=== PATIENT | male | born 1960 | race African-American/Black ===

== ENCOUNTER 2016-07-17 14:58 | Emergency (ER) | payer MEDICAID ==
[~2016-07-17] VITALS: Ht 182.9 cm; Wt 79.0 kg
[~2016-07-17 14:58] MED LIST: ACET-2708
[2016-07-17] MEDS ORDERED: HYDR25TA PO (16:11)
[2016-07-17] MEDS ORDERED: AMLO10TA80 PO (16:11)
[2016-07-17] MEDS ORDERED: ATEN50TA PO (16:11)
[2016-07-17] MEDS ORDERED: BENA40TA3 PO (16:11)
[2016-07-17] MEDS ORDERED: SODIUM CHLORIDE 0.9% 1,000 ML IV ONE (20:50)
[2016-07-17] MEDS ORDERED: ONDANSETRON HCL 4MG/2ML VIAL IV STA (20:50)
[2016-07-17] MEDS ORDERED: MORPHINE SULFATE 4 MG/ML CPJ (NOT FOR IM USE) IV STA (20:50)
[2016-07-17] MEDS ORDERED: KETOROLAC 30MG/ML VIAL IV STA (20:50)
[2016-07-17 21:07] LABS: BASOPHILS % 0.8 % (0.0-2.0); EOSINOPHILS % 1.1 % (0.0-5.0); HEMOGLOBIN. 14.9 g/dL (14.0-18.0); LYMPHOCYTES % 19.8 % (20.0-50.0); MEAN CORPUSCULAR HEMOGLOBIN 28.4 pg (28.0-32.0); MEAN CORPUSCULAR HGB CONC 33.1 g/dL (31.0-37.0); MEAN CORPUSCULAR VOLUME 85.6 fL (80.0-94.0); MEAN PLATELET VOLUME 8.8 fl (7.4-10.4); MONOCYTES % 7.7 % (2.0-8.0); NEUTROPHILS % 70.6 % (40.0-76.0); PLATELET 205 x1000/uL (130-400); RED BLOOD CELL COUNT 5.25 mill/uL (4.7-6.1); RED CELL DISTRIBUTION WIDTH 14.2 % (11.6-14.6); WHITE BLOOD COUNT 10.6 x1000/uL (4.5-11.0)
[2016-07-17 21:13] LABS: CHLORIDE 103 mEq/L (98-107); INDEX HEMOLYSI 1 (1-3); INDEX ICTERIC 1 (1-4); INDEX LIPEMIC 1 (1-3)
[2016-07-17 21:16] LABS: ALBUMIN 3.8 g/dL (3.4-5.0); ANION GAP 14; CALCIUM 9.3 mg/dL (8.5-10.1); CARBON DIOXIDE 26 mEq/L (21-32); UREA NITROGEN BLOOD 30 mg/dL (7-21)
[2016-07-17 21:20] LABS: ALANINE AMINOTRANSFERASE 21 IU/L (13-61); eGFR > 60 mL/min (>60)
[2016-07-17 21:45] LABS: CLARITY URINE CLEAR (CLEAR); COLOR URINE YELLOW (YELLOW); GLUCOSE URINE NEGATIVE (NEGATIVE); KETONES URINE 2+ (NEGATIVE); LEUKOCYTE ESTERASE URINE NEGATIVE (NEGATIVE); NITRITE URINE NEGATIVE (NEGATIVE); OCCULT BLOOD URINE 1+ (NEGATIVE); PROTEIN URINE NEGATIVE (NEGATIVE)
[2016-07-17 22:15] LABS: MUCUS URINE 1+ /lpf (NONE/TRACE); SQUAMOUS EPITHELIAL CELL URINE FEW /lpf (RARE/1+); WBC URINE 0-2 /hpf (0-2)
[2016-07-17 22:17] LABS: BACTERIA URINE 1+
[2016-07-17 23:30] VITALS: BP 111/69
== END 2016-07-18 00:13 | disposition home or self-care (01) ==
LOC: ER 15:12
DX: N20.0 Calculus of kidney (principal); N39.0 Urinary tract infection, site not specified; I10 Essential (primary) hypertension; R10.9 Unspecified abdominal pain
CPT/HCPCS: 36415; 74176; 80053; 81001; 85025; 96361; 96374; 96375; 99285; J1885; J2270; J2405; J7030; Z7610

== ENCOUNTER 2016-07-25 02:14 | Emergency (ER) | payer MEDICAID ==
[~2016-07-25] VITALS: Ht 185.4 cm; Wt 79.0 kg
[~2016-07-25 02:14] MED LIST changes: +AMLO10TA80 PO; +ATEN50TA PO; +BENA40TA3 PO; +HYDR25TA PO
[2016-07-25] MEDS ORDERED: KETOROLAC 60MG/2ML VIAL IM ONE (04:00)
[2016-07-25 04:59] LABS: CLARITY URINE CLOUDY (CLEAR); COLOR URINE YELLOW (YELLOW); GLUCOSE URINE NEGATIVE (NEGATIVE); KETONES URINE NEGATIVE (NEGATIVE); LEUKOCYTE ESTERASE URINE NEGATIVE (NEGATIVE); NITRITE URINE NEGATIVE (NEGATIVE); OCCULT BLOOD URINE NEGATIVE (NEGATIVE); PROTEIN URINE NEGATIVE (NEGATIVE); SPECIFIC GRAVITY URINE 1.015 (1.005-1.030); UROBILINOGEN URINE 0.2 E.U./dL (0.2-1.0)
[2016-07-25 05:13] LABS: AMORPHOUS SEDIMENT URINE 1+ /lpf; BACTERIA URINE 1+; RBC URINE 0-2 /hpf (0-2); SQUAMOUS EPITHELIAL CELL URINE RARE /lpf (RARE/1+); WBC URINE 0-2 /hpf (0-2)
[2016-07-25 06:13] VITALS: BP 132/77
== END 2016-07-25 06:16 | disposition home or self-care (01) ==
LOC: ER 02:15
DX: N39.0 Urinary tract infection, site not specified (principal); G89.29 Other chronic pain; F17.200 Nicotine dependence, unspecified, uncomplicated
CPT/HCPCS: 81001; 96372; 99283; J1885

== ENCOUNTER 2021-05-20 21:58 | Emergency (ER) | payer MEDICAID, OTHER ==
[~2021-05-20] VITALS: Ht 182.9 cm; Wt 79.0 kg
[~2021-05-20 21:58] MED LIST changes: -AMLO10TA80 PO; +AMLO5TAB88 MT; +ASPI-1406 PO; -ATEN50TA PO; -BENA40TA3 PO; +DILT120C88 PO; +GABA-532 MT; +HYDR25TA MT; -HYDR25TA PO
[2021-05-20] MEDS ORDERED: IBUPROFEN 600MG TABLET PO STA (23:48)
[2021-05-21 00:01] VITALS: BP 128/83
[2021-05-21 00:02] LABS: BASOPHILS % 0.8 % (0.0-2.0); EOSINOPHILS % 1.5 % (0.0-5.0); HEMATOCRIT. 49.5 % (42.0-52.0); LYMPHOCYTES % 16.7 % (20.0-50.0); MEAN CORPUSCULAR HEMOGLOBIN 28.3 pg (28.0-32.0); MEAN CORPUSCULAR VOLUME 87.4 fL (80.0-94.0); MEAN PLATELET VOLUME 9.2 fl (7.4-10.4); MONOCYTES % 6.9 % (2.0-8.0); NEUTROPHILS % 74.1 % (40.0-76.0); PLATELET 183 x1000/uL (130-400); RED BLOOD CELL COUNT 5.66 mill/uL (4.7-6.1); RED CELL DISTRIBUTION WIDTH 14.3 % (11.6-14.6)
[2021-05-21 00:10] LABS: CHLORIDE 108 mEq/L (98-107)
[2021-05-21 00:34] LABS: CLARITY URINE CLEAR (CLEAR); COLOR URINE YELLOW (YELLOW); KETONES URINE TRACE (NEGATIVE); LEUKOCYTE ESTERASE URINE NEGATIVE (NEGATIVE); NITRITE URINE NEGATIVE (NEGATIVE); OCCULT BLOOD URINE NEGATIVE (NEGATIVE); PH URINE 5.5 (4.5-8.0); PROTEIN URINE NEGATIVE (NEGATIVE); SPECIFIC GRAVITY URINE 1.028 (1.005-1.030)
== END 2021-05-21 03:27 | disposition left against medical advice (07) ==
LOC: ER 21:58
DX: K59.00 Constipation, unspecified (principal); M25.561 Pain in right knee; M25.562 Pain in left knee; I10 Essential (primary) hypertension; Z79.899 Other long term (current) drug therapy; Z98.890 Other specified postprocedural states
CPT/HCPCS: 36415; 74176; 80053; 81003; 85025; 99284

== ENCOUNTER 2021-06-01 22:57 | Emergency (ER) | payer OTHER ==
[~2021-06-01] VITALS: Ht 182.9 cm; Wt 79.0 kg
[2021-06-01] MEDS ORDERED: METHOCARBAMOL 500MG TABLET PO ONE (23:45)
[2021-06-01] MEDS ORDERED: LIDOCAINE 5% PATCH TOP SCH (23:45)
[2021-06-01] MEDS ORDERED: ACETAMINOPHEN 325MG TABLET PO ONE (23:45)
[2021-06-02] MEDS ORDERED: LIDO1ADH5 TP (00:45)
[2021-06-02] MEDS ORDERED: METH-773 MT (00:45)
[2021-06-02 01:15] VITALS: BP 152/90
== END 2021-06-02 01:16 | disposition home or self-care (01) ==
LOC: ER 22:57
DX: M54.50 Low back pain, unspecified (principal); G89.29 Other chronic pain; I10 Essential (primary) hypertension; Z98.890 Other specified postprocedural states; Z79.899 Other long term (current) drug therapy
CPT/HCPCS: 99284

== ENCOUNTER 2021-06-09 00:18 | Emergency (ER) | payer OTHER ==
[~2021-06-09] VITALS: Ht 182.9 cm; Wt 75.0 kg
[~2021-06-09 00:18] MED LIST changes: +LIDO1ADH5 TP; +METH-773 MT
[2021-06-09] MEDS ORDERED: HYDROCODONE/ACETAMINOPHEN 5/325MG TABLET PO STA (01:21)
[2021-06-09] MEDS ORDERED: KETOROLAC 30MG/ML VIAL IM STA (01:21)
[2021-06-09] MEDS ORDERED: GABA-532 PO (02:48)
[2021-06-09] MEDS ORDERED: NAPR-681 PO (02:48)
[2021-06-09 03:51] VITALS: BP 145/86
== END 2021-06-09 03:53 | disposition home or self-care (01) ==
LOC: ER 00:18
DX: M54.50 Low back pain, unspecified (principal); G89.29 Other chronic pain; I10 Essential (primary) hypertension; Z98.890 Other specified postprocedural states; Z79.899 Other long term (current) drug therapy
CPT/HCPCS: 96372; 99283; J1885

== ENCOUNTER 2021-08-07 21:58 | Emergency (ER) | payer MEDICAID ==
[~2021-08-07] VITALS: Ht 182.9 cm; Wt 74.5 kg
[~2021-08-07 21:58] MED LIST changes: +GABA-532 PO; +NAPR-681 PO
[2021-08-08 03:33] LABS: CLARITY URINE TURBID (CLEAR); COLOR URINE YELLOW (YELLOW); KETONES URINE TRACE (NEGATIVE); LEUKOCYTE ESTERASE URINE 3+ (NEGATIVE); NITRITE URINE NEGATIVE (NEGATIVE); OCCULT BLOOD URINE 3+ (NEGATIVE); PH URINE 7.5 (4.5-8.0); PROTEIN URINE 1+ (NEGATIVE); SPECIFIC GRAVITY URINE 1.017 (1.005-1.030); UROBILINOGEN URINE 0.2 E.U./dL (0.2-1.0)
[2021-08-08] MEDS ORDERED: CEFP200T13 MT (04:24)
[2021-08-08 04:50] VITALS: BP 145/97
== END 2021-08-08 04:52 | disposition home or self-care (01) ==
LOC: ER 21:58
DX: Z46.6 Encounter for fitting and adjustment of urinary device (principal); R33.9 Retention of urine, unspecified; N39.0 Urinary tract infection, site not specified; I10 Essential (primary) hypertension; M54.30 Sciatica, unspecified side; Z79.82 Long term (current) use of aspirin
CPT/HCPCS: 81003; 87077; 87086; 87186; 99283; Z7610

== ENCOUNTER 2021-08-30 05:03 | Emergency (ER) | payer MEDICAID ==
[~2021-08-30] VITALS: Ht 182.9 cm; Wt 75.3 kg
[~2021-08-30 05:03] MED LIST changes: +CEFP200T13 MT; +CIPR250S3 MT
[2021-08-30 05:13] VITALS: BP 151/109
[2021-08-30 06:47] LABS: CLARITY URINE CLEAR (CLEAR); COLOR URINE YELLOW (YELLOW); KETONES URINE TRACE (NEGATIVE); LEUKOCYTE ESTERASE URINE TRACE (NEGATIVE); NITRITE URINE NEGATIVE (NEGATIVE); OCCULT BLOOD URINE 2+ (NEGATIVE); PROTEIN URINE 1+ (NEGATIVE); SPECIFIC GRAVITY URINE 1.019 (1.005-1.030)
== END 2021-08-30 07:10 | disposition home or self-care (01) ==
LOC: ER 05:03
DX: R33.9 Retention of urine, unspecified (principal); I10 Essential (primary) hypertension; Z79.899 Other long term (current) drug therapy
CPT/HCPCS: 51702; 81003; 99284; A4315

== ENCOUNTER 2021-09-08 01:24 | Emergency (ER) | payer MEDICAID ==
[~2021-09-08] VITALS: Ht 182.9 cm; Wt 80.0 kg
[2021-09-08] MEDS ORDERED: IBUPROFEN 600MG TABLET PO STA (03:57)
[2021-09-08 05:34] LABS: CLARITY URINE TURBID (CLEAR); COLOR URINE YELLOW (YELLOW); KETONES URINE NEGATIVE (NEGATIVE); LEUKOCYTE ESTERASE URINE 3+ (NEGATIVE); NITRITE URINE NEGATIVE (NEGATIVE); OCCULT BLOOD URINE 3+ (NEGATIVE); PROTEIN URINE 3+ (NEGATIVE); SPECIFIC GRAVITY URINE 1.017 (1.005-1.030)
[2021-09-08] MEDS ORDERED: LIDOCAINE HCL 1% 20ML VIAL (Pyxis) INJ INFIL NR (06:00)
[2021-09-08] MEDS ORDERED: CEFTRIAXONE SODIUM 1 G/VIAL IM NR (06:00)
[2021-09-08] MEDS ORDERED: CIPR-263 PO (06:09)
[2021-09-08] MEDS ORDERED: ACET-2708 PO (06:09)
[2021-09-08 06:30] VITALS: BP 112/85
== END 2021-09-08 06:39 | disposition home or self-care (01) ==
LOC: ER 01:24
DX: N39.0 Urinary tract infection, site not specified (principal); T83.091A Other mechanical complication of indwelling urethral catheter, initial encounter; X58.XXXA Exposure to other specified factors, initial encounter; I10 Essential (primary) hypertension; Z79.899 Other long term (current) drug therapy
CPT/HCPCS: 81003; 87077; 87086; 87186; 96372; 99283; J0696; J3490; A4315

== ENCOUNTER 2021-10-04 13:38 | Emergency (ER) | payer MEDICAID ==
[~2021-10-04] VITALS: Ht 170.2 cm; Wt 79.0 kg
[~2021-10-04 13:38] MED LIST changes: +ACET-2708 PO; +CIPR-263 PO
[2021-10-04 13:47] VITALS: BP 145/90
== END 2021-10-04 18:10 | disposition home or self-care (01) ==
LOC: ER 13:38
DX: T83.091A Other mechanical complication of indwelling urethral catheter, initial encounter (principal); X58.XXXA Exposure to other specified factors, initial encounter; R10.30 Lower abdominal pain, unspecified; I10 Essential (primary) hypertension; Z98.890 Other specified postprocedural states; Z79.899 Other long term (current) drug therapy
CPT/HCPCS: 99281; A4315

== ENCOUNTER 2023-06-18 02:21 | Emergency (ER) | payer MEDICAID ==
[~2023-06-18] VITALS: Ht 182.9 cm; Wt 82.0 kg
[2023-06-18 02:29] VITALS: BP 153/112; PULSE 110; RESP 18; TEMP 98.5; O2SAT 99
[2023-06-18] MEDS ORDERED: AMLO10TA80 MT (06:31)
[2023-06-18] MEDS ORDERED: HYDR25TA MT (06:31)
[2023-06-18] MEDS ORDERED: TOPUD MT (06:31)
[2023-06-18] MEDS ORDERED: BENA40TA91 MT (06:31)
== END 2023-06-18 06:40 | disposition home or self-care (01) ==
LOC: ER 02:21
DX: I10 Essential (primary) hypertension (principal); M79.18 Myalgia, other site; Z76.0 Encounter for issue of repeat prescription; Z79.899 Other long term (current) drug therapy
CPT/HCPCS: 99281; Z7610

== ENCOUNTER 2025-01-14 16:55 | Emergency (ER) | payer MEDICAID ==
[~2025-01-14] VITALS: Ht 182.9 cm; Wt 70.0 kg
[~2025-01-14 16:55] MED LIST changes: +AMLO10TA80 MT; +BENA40TA91 MT; +GABA-1180 MT; +GABA-1180 PO; -GABA-532 MT; -GABA-532 PO; +TOPUD MT
[2025-01-14 16:56] VITALS: O2SAT 98
[2025-01-14 16:59] VITALS: TEMP 36.7; O2SAT 99
[2025-01-14 17:23] VITALS: BP 145/84; PULSE 82; RESP 19
[2025-01-14] MEDS: LIDOCAINE 5% PATCH TOP SCH (17:23)
[2025-01-14] MEDS: KETOROLAC 30MG/ML VIAL IM ONE (17:23)
[2025-01-14] MEDS ORDERED: NAPR-681 MT (17:30)
[2025-01-14] MEDS ORDERED: LIDO-53 TP (17:30)
== END 2025-01-14 17:54 | disposition home or self-care (01) ==
LOC: ER 16:55
DX: M54.50 Low back pain, unspecified (principal); M54.2 Cervicalgia; I10 Essential (primary) hypertension; Z79.1 Long term (current) use of non-steroidal anti-inflammatories (NSAID); Z79.82 Long term (current) use of aspirin; Z79.899 Other long term (current) drug therapy
CPT/HCPCS: 99283; 96372; J1885

== ENCOUNTER 2025-01-22 06:00 | Emergency (ER) | payer MEDICAID ==
[~2025-01-22] VITALS: Ht 180.3 cm; Wt 64.0 kg
[~2025-01-22 06:00] MED LIST changes: +LIDO-53 TP; +NAPR-681 MT
[2025-01-22 06:08] VITALS: O2SAT 98
[2025-01-22] MEDS: LIDOCAINE HCL 1% 20ML VIAL INFIL STA (09:15)
[2025-01-22] MEDS: TETANUS, DIPHTHERIA, PERTUSSIS VAC/PF 0.5ML (>10YR OLD) IM ONE (09:21)
[2025-01-22 09:22] VITALS: BP 132/90; PULSE 90; RESP 15; TEMP 36.6; O2SAT 98
== END 2025-01-22 09:23 | disposition home or self-care (01) ==
LOC: ER 06:13
DX: S01.111A Laceration without foreign body of right eyelid and periocular area, initial encounter (principal); I10 Essential (primary) hypertension; M54.30 Sciatica, unspecified side; Z79.1 Long term (current) use of non-steroidal anti-inflammatories (NSAID); Z79.899 Other long term (current) drug therapy; Z79.82 Long term (current) use of aspirin; W01.0XXA Fall on same level from slipping, tripping and stumbling without subsequent striking against object, initial encounter; Y93.89 Activity, other specified; Y92.89 Other specified places as the place of occurrence of the external cause; Y99.8 Other external cause status
CPT/HCPCS: 99285; 70450; 90715; 12011; 90471; J2003

== ENCOUNTER 2025-02-26 19:26 | Emergency (ER) | payer MEDICAID ==
[~2025-02-26] VITALS: Ht 182.9 cm; Wt 71.0 kg
[2025-02-26 19:45] VITALS: O2SAT 98
[2025-02-26 19:55] VITALS: BP 142/95; PULSE 77; RESP 16; TEMP 37.1; O2SAT 100
[2025-02-26] MEDS: KETOROLAC 15MG/ML VIAL IM ONE (21:38)
[2025-02-26] MEDS: CYCLOBENZAPRINE 10MG TABLET PO ONE (21:38)
[2025-02-26] MEDS: LIDOCAINE 5% PATCH TOP SCH (21:42)
[2025-02-26 22:07] LABS: BASOPHILS % 0.5 % (0.0-2.0); EOSINOPHILS % 1.2 % (0.0-5.0); HEMATOCRIT. 52.5 % (42.0-52.0); HEMOGLOBIN. 16.8 g/dL (14.0-18.0); LYMPHOCYTES % 11.4 % (20.0-50.0); MONOCYTES % 8.2 % (2.0-8.0); NEUTROPHILS % 78.7 % (40.0-76.0); RED BLOOD CELL COUNT 5.90 mill/uL (4.7-6.1); RED CELL DISTRIBUTION WIDTH 14.9 % (11.6-14.6)
[2025-02-26 22:20] LABS: MEAN PLATELET VOLUME 9.1 fl (7.4-10.4); PLATELET 207 x1000/uL (130-400)
[2025-02-26 22:26] LABS: CREATININE 1.4 mg/dL (0.6-1.3); UREA NITROGEN BLOOD 17 mg/dL (9-23)
== END 2025-02-26 23:09 | disposition left against medical advice (07) ==
LOC: ER 19:33
DX: M25.519 Pain in unspecified shoulder (principal); R60.0 Localized edema; I10 Essential (primary) hypertension; Z79.899 Other long term (current) drug therapy
CPT/HCPCS: 99283; 80048; 83880; 85025; 36415; 96372; J1885